=== PATIENT | female | born 1990 | race Caucasian/White ===

== ENCOUNTER 2017-05-07 02:12 | Day surgery (SDC) | payer BC ==
--- NOTE | 2017-05-07 10:06 | PRG ---
DATE OF SERVICE: 05/07/2017 PRIMARY OB: Dr. Karin Coronel. CHIEF COMPLAINT: Abdominal pains. HISTORY OF PRESENT ILLNESS: The patient is a 26-year-old G1, P0 female with an intrauterine pregnanc y at 40 weeks and 5 days who is presenting to Labor and Delivery with approximately a day uterine con tractions and about 3 hours of intense contractions. The patient reports she feels them approximatel y every 5 minutes apart. She denies any leakage of fluid or vaginal bleeding or any recent illness, fever or fall, headache, chest pain, shortness of breath, nausea, vomiting, diarrhea, constipation, r sindy. She does have some hip problems, just due to the . Denies any leg or back problems, n o vaginal bleeding, leakage of fluid, urinary urgency. PAST MEDICAL HISTORY: Negative. PAST SURGICAL HISTORY: Negative. SOCIAL HISTORY: Denies drug, alcohol or tobacco use. ALLERGIES: No known drug allergies. OBSTETRIC HISTORY: This is her first . REVIEW OF SYSTEMS: Per HPI. PHYSICAL EXAMINATION: VITAL SIGNS: Blood pressure 130/80, heart rate 66, respiratory rate 20, temperature 97.8. GENERAL: She appears to be in no acute distress. She is alert and oriented, and cooperative and ple asant to interact with. HEENT: Normocephalic, atraumatic. LUNGS: Clear to auscultation bilaterally. HEART: Regular rate and rhythm. ABDOMEN: Gravid, soft, nontender between contractions. EXTREMITIES: Nontender with some minimal to moderate edema bilaterally. CERVICAL EXAM: Cervical exam per nursing staff is 1, thick and -2 station. heart tracing performed for abdominal pains for approximately 45 minutes. Baseline is noted to be in the 120s with moderate long-term variability, positive accelerations, no decelerations. Contr actions are irregular, 1-4 minutes apart. ASSESSMENT AND PLAN: The patient is a 26-year-old G1, P0 female with an intrauterine at 40 weeks and 5 days with a reactive NST and likely in latent labor. The patient has been given the opt ion given her cervical exam to stay for approximately 3 hours and to be reevaluated or to go home whe re she can rest more comfortably and return once her contractions are more regular and more intense. The patient has opted to be discharged home. She declined any pain medication.
== END 2017-05-07 03:35 | disposition home or self-care (01) ==
LOC: L&D/OP 02:12
PROVIDERS: ATTEND Obstetrics & Gynecology
DX: O47.1 False labor at or after 37 completed weeks of gestation (principal); Z3A.40 40 weeks gestation of pregnancy
CPT/HCPCS: 99282

== ENCOUNTER 2017-05-07 23:19 | Inpatient (IN) | payer BC ==
[2017-05-07 23:42] VITALS: BMI 27.4
[2017-05-08] MEDS ORDERED: Lactated Ringer's 1,000 ML IV SCH (00:30)
[2017-05-08] MEDS: Lactated Ringer's 1,000 ML IV SCH ×3 (01:15→19:53)
[2017-05-08] MEDS: Morphine 10 MG/ML VIAL SLOW IVP SCH ×2 (02:13→07:45)
[2017-05-08] MEDS: Ondansetron HCl/PF 4 MG/2 ML Vial IVP PRN ×2 (02:13→07:50)
[2017-05-08] MEDS ORDERED: Penicillin G 2.5 MILL.units 2.5 MILL.UNITS in Premix Bag 1 BAG IVPB PRN (07:01)
[2017-05-08] MEDS ORDERED: Penicillin G Potassium 5 MILL.UNITS in Sodium Chloride 0.9% 100 ML IVPB PRN (07:01)
[2017-05-08] MEDS ORDERED: Diphenoxylate HCl/Atropine Tablet PO PRN (07:01)
[2017-05-08] MEDS ORDERED: Lidocaine 1% (PF) 30 ML VIAL SC PRN (07:01)
[2017-05-08] MEDS ORDERED: Ondansetron HCl/PF 4 MG/2 ML Vial IVP PRN ×3 (07:01→13:41)
[2017-05-08] MEDS ORDERED: Methylergonovine 0.2 MG/ML VIAL IM PRN (07:01)
[2017-05-08] MEDS ORDERED: Misoprostol 200 MCG TAB PR PRN (07:01)
[2017-05-08] MEDS ORDERED: Ibuprofen 800 MG TAB PO PRN (07:01)
[2017-05-08] MEDS ORDERED: Carboprost 250 MCG/ML AMP IM PRN (07:01)
[2017-05-08] MEDS ORDERED: LR / Pitocin 40 units/1000 ml 1,000 ML IV PRN (07:01)
[2017-05-08 07:11] LABS: Hemoglobin 13.9 g/dL (12.0-16.0); Mean Corpuscular HGB CONC 33.2 g/dL (32.0-36.0); Mean Corpuscular Hemoglobin 33.3 pg (27.0-31.0); Mean Platelet Volume 8.7 fL (7.4-10.4); Platelet Count 195 thou/uL (130-400); RBC Distribution Width 12.5 % (11.5-14.5); Red Blood Cell (RBC) Count 4.18 mill/uL (4.20-5.40); White Blood Cell (WBC) Count 10.4 thou/uL (4.8-10.8)
[2017-05-08] MEDS ORDERED: Morphine 10 MG/ML VIAL ONE (07:32)
[2017-05-08 07:46] LABS: HBSAg Index 0.13 S/CO (0-0.99); Hep B Surf Ag Non-Reactive S/CO (NonReactive)
[2017-05-08] MEDS ORDERED: Morphine 2 MG/ML SYRINGE SLOW IVP STA (08:05)
--- NOTE | 2017-05-08 08:42 | HP ---
DATE OF SERVICE: 05/08/2017 CHIEF COMPLAINT: Contractions. HISTORY OF PRESENT ILLNESS: At the time of presentation, Ms. Patricia is a 26- year-old primigravida at 40 weeks 6 days, who presented late last night with complaints of contractions. She was only 1 cm dilated at that time, which was unchanged from her exam the night prior. The patient was observed, and very slowly over the night progressed to 3 cm dilation, 80% effacement by approximately 6:30 in the morning. She denies any vaginal bleeding or leakage of fluids. She reports appropriate movement. She denies any fever or chills. She denies any complications during this . LIMITED REVIEW OF SYSTEMS: Per HPI. HISTORY: Please see labor and delivery admission record included by reference. PHYSICAL EXAMINATION: VITAL SIGNS: Within normal limits. The patient is afebrile. GENERAL: Nontoxic appearing female, in mild amount of distress. OBSTETRIC: heart tracing is category 1. Tocodynamometer shows contractions every 2 to 4 minutes. GENITOURINARY: Cervix initially at presentation was 1 cm dilated, 50% effaced, and over approximately 6 hours changed to 3 cm dilation, 80% effacement. HEENT: Normocephalic, atraumatic. LUNGS: Clear to auscultation. CARDIOVASCULAR: Regular rate and rhythm. ABDOMEN: Gravid, nontender. EXTREMITIES: Without cyanosis, clubbing, or edema. NEUROLOGIC: Alert and oriented x3. No focal deficits. ASSESSMENT AND PLAN: 1. A 40-week 6-day intrauterine with category 1 tracing. 2. Early active labor. The patient will be admitted and Dr. Coronel will be notified. Expectant management with active management as needed. KEHINDE
[2017-05-08 10:56] LABS: Syphilis Antibody Nonreactive (Nonreactive); Syphilis Antibody Index 0.04 S/CO (<1.00 Non-Reactive)
[2017-05-08] MEDS ORDERED: LR 500 ML/Oxytocin 10 units 500 ML ONE (11:41)
[2017-05-08] MEDS ORDERED: LR 500 ML/Oxytocin 10 units 500 ML IV SCH (11:45)
[2017-05-08] MEDS ORDERED: Fentanyl 4 mcg/Marc 0.1% Cadd 100 ML ONE (12:27)
[2017-05-08] MEDS ORDERED: ePHEDrine/0.9% NaCl/PF SYRINGE 50 mg/10 ml SLOW IVP PRN (13:41)
[2017-05-08] MEDS ORDERED: Lactated Ringer's 500 ML IV PRN (13:41)
[2017-05-08] MEDS ORDERED: Promethazine HCl 25 MG/ML VIAL IM PRN (13:41)
[2017-05-08] MEDS ORDERED: diphenhydrAMINE 50 MG/ML VIAL IVP PRN (13:41)
[2017-05-08] MEDS ORDERED: Eucerin (Mineral Oil/Petrolatum,White) 30 gm Jar TOP PRN (13:41)
[2017-05-08] MEDS ORDERED: Acetaminophen 325 MG TAB PO PRN (13:41)
[2017-05-08] MEDS ORDERED: Naloxone HCl 0.4 mg/ml Vial IVP PRN ×2 (13:41)
[2017-05-08] MEDS ORDERED: Communication Order-Pharmacy FS SCH (13:45)
[2017-05-08] MEDS ORDERED: Fentanyl 4mcg/Marcaine 0.1% Cassette 100 ML EPIDURAL SCH (13:45)
[2017-05-08] MEDS ORDERED: Adacel (T-DAP) 0.5 ML VIAL IM ONE (19:24)
[2017-05-08] MEDS ORDERED: Bisacodyl 10 MG SUPP PR PRN (19:24)
[2017-05-08] MEDS ORDERED: Milk Of Magnesia 30 ML UDCUP PO PRN (19:24)
[2017-05-08] MEDS ORDERED: Lanolin Ointment 7 GM TUBE TOP PRN (19:24)
[2017-05-08] MEDS ORDERED: Preparation H Ointment 28 GM TUBE PR PRN (19:24)
[2017-05-08] MEDS ORDERED: diphenhydrAMINE 25 MG CAP PO PRN (19:24)
[2017-05-08] MEDS ORDERED: Benzocaine/Menthol 20-0.5% 60 ML CAN TOP PRN (19:24)
[2017-05-08 19:28] LABS: Actual Bicarbonate (HCO3a) 21.4 mEq/L (22-26); Analyzer IN Cardio OR; Base Excess (BEa) -4.8 mEq/L (0 (+/-) 2.5)
[2017-05-08] MEDS ORDERED: LR / Pitocin 40 units/1000 ml 1,000 ML IV SCH (19:30)
[2017-05-08] MEDS ORDERED: Lidocaine 2% MPF 10 ML AMP (For Epidural Use) ONE (20:05)
[2017-05-09] MEDS: Ibuprofen 800 MG TAB PO SCH ×4 (00:18→21:56)
[2017-05-09] MEDS: Docusate Calcium (SURFAK) 240 MG CAP PO SCH ×3 (07:29→21:56)
[2017-05-09] MEDS: Ferrous Sulfate 325 MG TAB PO SCH ×2 (09:24→18:34)
[2017-05-09] MEDS: Prenatal Vitamin 1 TAB PO SCH (09:24)
--- NOTE | 2017-05-09 12:21 | PDOC.OPDEL ---
OB Operative/Delivery Note Delivery Dr/Surgeon: Homer Pre-Delivery Diagnosis: active labor Procedure/Post Delivery Dx: spontaneous vaginal delivery Weeks gestation: 40 Anesthesia: epidural - Findings B Sex: male Weight: 6 lb 15 oz - 1 min: 5 - 5 min: 7 - Additional Findings/Plan Placenta delivered: spontaneous Repaired Obstetrical Laceration: 2nd degree
--- NOTE | 2017-05-09 12:22 | PDOC.PP ---
Post Progress Note Post Day #: 1 PO intake tolerated: yes Flatus: yes Ambulation: yes Vital Signs (12 hours) Temp Pulse Resp BP 05/09/17 08:00 98 F 74 18 112/58 L 05/09/17 04:00 98.4 F 74 20 Weight Weight 160 lb - Physical Examination General: NAD Cardiovascular: no m/r/g, RRR Respiratory: clear to auscultation bilaterally, non-labored breathing Abdominal: + bowel sounds, lochia, no distention, appropriately TTP Result Diagrams: 05/08/17 02:31 Additional Labs: Post Labs Blood Type A POSITIVE 05/08/17 02:31 Hep Bs Antigen Non-Reactive S/CO (NonReactive) 05/08/17 02:31 - Assessment/Plan post day 1 doing well d/c tomorrow
[2017-05-09] MEDS ORDERED: traMADol HCl 50 MG TAB PO PRN ×2 (19:24)
[2017-05-10] MEDS: Ibuprofen 800 MG TAB PO SCH ×2 (06:17→08:29)
[2017-05-10 08:16] VITALS: BP 117/69; TEMP 98.1
[2017-05-10] MEDS: Ferrous Sulfate 325 MG TAB PO SCH (08:28)
[2017-05-10] MEDS: Docusate Calcium (SURFAK) 240 MG CAP PO SCH (09:18)
[2017-05-10] MEDS: Prenatal Vitamin 1 TAB PO SCH (09:18)
== END 2017-05-10 13:45 | disposition home or self-care (01) | DRG 775 ==
LOC: L&D/OP 23:19 → L&D 05-08 06:34 → 3SW 05-08 22:53
PROVIDERS: ADMIT Obstetrics & Gynecology; ATTEND Obstetrics & Gynecology
PROC: 10E0XZZ Delivery of Products of Conception, External Approach (ICD-10-PCS; principal; 2017-05-08)
PROC: 0KQM0ZZ Repair Perineum Muscle, Open Approach (ICD-10-PCS; 2017-05-08)
DX: O70.1 Second degree perineal laceration during delivery (principal); Z37.0 Single live birth; Z3A.40 40 weeks gestation of pregnancy
CPT/HCPCS: 51702; 76815; 82805; 85027; 86780; 87340; 90715; 99285; J2001; J2270; J2405; J7120

== ENCOUNTER 2020-05-24 11:04 | Outpatient (CLI) | payer OTHER, BC ==
[2020-05-25 02:43] LABS: SARS-CoV-2 PCR by NAA Not Detected (NotDetected)
== END 2020-05-24 11:05 | disposition home or self-care (01) ==
LOC: LABBT 11:04
PROVIDERS: ATTEND Obstetrics & Gynecology
DX: Z01.812 Encounter for preprocedural laboratory examination (principal); Z20.822 Contact with and (suspected) exposure to COVID-19
CPT/HCPCS: 87635; U0003; U0005

== ENCOUNTER 2020-05-25 19:15 | Inpatient (IN) | payer BC, OTHER ==
[2020-05-25] MEDS ORDERED: Methylergonovine 0.2 MG/ML VIAL IM PRN (20:41)
[2020-05-25] MEDS ORDERED: Ondansetron PF 4 MG/2 ML Vial IVP PRN (20:41)
[2020-05-25] MEDS ORDERED: Diphenoxylate HCl/Atropine Tablet PO PRN ×2 (20:41)
[2020-05-25] MEDS ORDERED: Carboprost 250 MCG/ML AMP IM PRN (20:41)
[2020-05-25] MEDS ORDERED: Ibuprofen 800 MG TAB PO PRN (20:41)
[2020-05-25] MEDS ORDERED: NS / Oxytocin 40 units/1000ml 1,000 ML IV PRN (20:41)
[2020-05-25] MEDS ORDERED: Lidocaine 1% (PF) 30 ML VIAL SC PRN (20:41)
[2020-05-25] MEDS ORDERED: Promethazine HCl 25 MG/ML VIAL IM PRN (20:41)
[2020-05-25] MEDS ORDERED: Acetaminophen 500 MG TAB PO PRN (20:41)
[2020-05-25] MEDS ORDERED: Misoprostol 200 MCG TAB PR PRN (20:41)
[2020-05-25] MEDS ORDERED: hydrALAZINE 20 MG/ML VIAL SLOW IVP PRN (20:41)
[2020-05-25] MEDS ORDERED: HYDROcodone/Acetaminophen 5/325 mg Tablet PO PRN ×2 (20:41)
[2020-05-25] MEDS ORDERED: NS w/ Oxytocin 30 units 500 ML IVPB SCH (21:00)
[2020-05-25 21:28] VITALS: BMI 29.7
[2020-05-25 21:29] LABS: Hemoglobin 12.7 g/dL (12.0-16.0); Mean Corpuscular Hemoglobin 32.3 pg (27.0-31.0); Mean Corpuscular Volume 95.1 fL (78.0-98.0); Mean Platelet Volume 8.2 fL (7.4-10.4); Platelet Count 195 thou/uL (130-400); RBC Distribution Width 13.2 % (11.5-14.5); Red Blood Cell (RBC) Count 3.93 mill/uL (4.20-5.40); White Blood Cell (WBC) Count 7.9 thou/uL (4.8-10.8)
[2020-05-25] MEDS: Lactated Ringer's 1,000 ML IV SCH (21:30)
[2020-05-25 22:04] LABS: Syphilis Antibody Nonreactive (Nonreactive); Syphilis Antibody Index 0.03 S/CO (<1.00 Non-Reactive)
[2020-05-25] MEDS: Misoprostol 100 MCG TAB VAG SCH (22:28)
[2020-05-25 22:45] LABS: HBSAg Index 0.58 S/CO (0-0.99); Hep B Surf Ag Non-Reactive S/CO (NonReactive)
[2020-05-26] MEDS: Misoprostol 100 MCG TAB VAG SCH ×2 (02:09→14:40)
[2020-05-26] MEDS ORDERED: Fentanyl 4 mcg/Bup 0.1% Cadd 100 ML ONE (06:33)
[2020-05-26] MEDS ORDERED: Lactated Ringer's 500 ML IV PRN (07:03)
[2020-05-26] MEDS ORDERED: Promethazine HCl 25 MG/ML VIAL IM PRN (07:03)
[2020-05-26] MEDS ORDERED: Acetaminophen 325 MG TAB PO PRN (07:03)
[2020-05-26] MEDS ORDERED: Ondansetron PF 4 MG/2 ML Vial IVP PRN (07:03)
[2020-05-26] MEDS ORDERED: ePHEDrine 50 MG/ML VIAL SLOW IVP PRN (07:03)
[2020-05-26] MEDS ORDERED: Naloxone HCl 0.4 mg/ml Vial IVP PRN ×2 (07:03)
[2020-05-26] MEDS ORDERED: diphenhydrAMINE 50 MG/ML VIAL IVP PRN (07:03)
[2020-05-26] MEDS ORDERED: Fentanyl 4 mcg/Bupivacaine 0.1% Cassette 100 ML EPIDURAL SCH (07:15)
[2020-05-26] MEDS ORDERED: Communication Order-Pharmacy FS SCH (07:15)
[2020-05-26] MEDS: Lactated Ringer's 1,000 ML IV SCH ×2 (07:59→14:40)
[2020-05-26] MEDS ORDERED: Lidocaine 1% (PF) 30 ML VIAL ONE (09:43)
[2020-05-26] MEDS ORDERED: Bisacodyl 10 MG SUPP PR PRN (11:27)
[2020-05-26] MEDS ORDERED: Lanolin Ointment 7 GM TUBE TOP PRN (11:27)
[2020-05-26] MEDS ORDERED: Benzocaine-Menthol 82.5 ML CAN TOP PRN (11:27)
[2020-05-26] MEDS ORDERED: traMADol HCl 50 MG TAB PO PRN (11:27)
[2020-05-26] MEDS ORDERED: hydrALAZINE 20 MG/ML VIAL SLOW IVP PRN (11:27)
[2020-05-26] MEDS ORDERED: Milk Of Magnesia 30 ML UDCUP PO PRN (11:27)
--- NOTE | 2020-05-26 11:27 | PDOC.OPDEL ---
OB Operative/Delivery Note Delivery Dr/Surgeon: Homer Pre-Delivery Diagnosis: elective induction Procedure/Post Delivery Dx: spontaneous vaginal delivery Weeks gestation: 40 Anesthesia: epidural - Findings A Sex: male - 1 min: 8 - 5 min: 9 - Additional Findings/Plan Placenta delivered: spontaneous Repaired Obstetrical Laceration: 2nd degree Estimated blood loss: 75 ml qbl Post delivery plan: routine recovery
[2020-05-26] MEDS ORDERED: NS / Oxytocin 40 units/1000ml 1,000 ML IV SCH (11:30)
[2020-05-26] MEDS: Ibuprofen 800 MG TAB PO SCH ×2 (14:55→20:37)
[2020-05-26] MEDS: Ferrous Sulfate 325 MG TAB PO SCH (16:03)
[2020-05-26] MEDS: Docusate Calcium (SURFAK) 240 MG CAP PO SCH (20:37)
[2020-05-27] MEDS: Ibuprofen 800 MG TAB PO SCH ×2 (05:26→14:11)
[2020-05-27 05:58] VITALS: TEMP 97.9
--- NOTE | 2020-05-27 06:38 | PDOC.PP ---
Post Progress Note Post Day #: 1 Subjective: Desires home today if able. Doing well PO intake tolerated: yes Flatus: yes Ambulation: yes Vital Signs (12 hours) Temp Pulse Resp BP Pulse Ox 05/27/20 04:10 97.9 F 69 18 98/46 L 05/26/20 20:04 98.7 F 69 12 105/55 L 99 Weight Weight 173 lb - Physical Examination General: NAD Respiratory: non-labored breathing Abdominal: appropriately TTP Extremities: negative homans (B) Skin: no rash Neurological: no gross focal deficits Psychiatric: A&Ox3, normal affect Result Diagrams: 05/25/20 21:15 Additional Labs: Post Labs Hep Bs Antigen Non-Reactive S/CO (NonReactive) 05/25/20 21:15 Blood Type A POSITIVE 05/25/20 21:15 (1) Vaginal delivery Code(s): O80 - ENCOUNTER FOR FULL-TERM UNCOMPLICATED DELIVERY Status: Acute - Assessment/Plan PPD1 doing well. OK for discharge to home.
[2020-05-27] MEDS ORDERED: Prenatal Vitamin 1 TAB PO SCH (09:00)
[2020-05-27] MEDS: Ferrous Sulfate 325 MG TAB PO SCH (09:29)
[2020-05-27 09:31] VITALS: BP 107/54
[2020-05-27] MEDS: Docusate Calcium (SURFAK) 240 MG CAP PO SCH (09:33)
[2020-05-27] MEDS ORDERED: Adacel (T-DAP) 0.5 ML SYRINGE IM ONE (11:27)
== END 2020-05-27 15:23 | disposition home or self-care (01) | DRG 807 ==
LOC: L&D 20:01 → 3SW 05-26 14:42
PROVIDERS: ADMIT Obstetrics & Gynecology; ATTEND Obstetrics & Gynecology
PROC: 10E0XZZ Delivery of Products of Conception, External Approach (ICD-10-PCS; principal; 2020-05-26)
PROC: 0KQM0ZZ Repair Perineum Muscle, Open Approach (ICD-10-PCS; 2020-05-26)
PROC: 10907ZC Drainage of Amniotic Fluid, Therapeutic from Products of Conception, Via Natural or Artificial Opening (ICD-10-PCS; 2020-05-26)
PROC: 3E033VJ Introduction of Other Hormone into Peripheral Vein, Percutaneous Approach (ICD-10-PCS; 2020-05-26)
DX: O48.0 Post-term pregnancy (principal); Z37.0 Single live birth; Z3A.40 40 weeks gestation of pregnancy; O70.1 Second degree perineal laceration during delivery
CPT/HCPCS: 36415; 51702; 85027; 86780; 86850; 86900; 86901; 87340; J2590